=== PATIENT | male | born 1945 | race Caucasian/White ===

== ENCOUNTER 2017-04-09 22:09 | Inpatient (IN) | payer MEDICARE, OTHER ==
[2017-04-09 22:46] LABS: #Basophils 0.1 thou/uL (0.0-0.2); #Eosinphils 0.1 thou/uL (0.0-0.7); #Lymphocytes 1.5 thou/uL (1.20-3.40); #Monocytes 1.1 thou/uL (0.11-0.59); #Neutrophils 9.6 thou/uL (1.40-6.50); %Basophils 0.4 % (0.0-1.0); %Eosinophils 1.1 % (0.0-10.0); %Lymphocytes 11.7 % (21.0-51.0); %Monocytes 8.9 % (0.0-10.0); %Neutrophils 77.9 % (42.0-75.0); Hemoglobin 14.6 g/dL (14.0-18.0); Mean Corpuscular Hemoglobin 28.8 pg (27.0-31.0); Mean Corpuscular Volume 87.4 fl (80.0-94.0); Mean Platelet Volume 8.5 fL (7.4-10.4); Platelet Count 207 thou/uL (130-400); RBC Distribution Width 12.9 % (11.5-14.5); Red Blood Cell (RBC) Count 5.06 mill/uL (4.70-6.10); White Blood Cell (WBC) Count 12.3 thou/uL (4.8-10.8)
[2017-04-09 23:08] LABS: ALT (SGPT) 219 U/L (8-55); AST (SGOT) 329 U/L (5-34); Albumin 4.4 g/dL (3.4-4.8); Alkaline Phosphatase 163 U/L (40-150); Anion Gap 17 mmol/L (10-20); BUN (Urea Nitrogen) 20 mg/dL (8.4-25.7); Bilirubin, Total 1.8 mg/dL (0.2-1.2); Calc. Creatinine Clearance 0 mL/min (70-130); Calcium 9.8 mg/dL (7.8-10.44); Carbon Dioxide 27 mmol/L (23-31); Chloride 97 mmol/L (98-107); Estimated GFR-MDRD 53; Globulin 2.7 g/dL (2.4-3.5); Glucose 394 mg/dL (80-115); Lipase 75 U/L (8-78); Potassium 4.1 mmol/L (3.5-5.1); Protein, Total 7.1 g/dL (5.8-8.1); Sodium 137 mmol/L (136-145)
[2017-04-09 23:13] LABS: CKMB 1.1 ng/mL (0-6.6); Troponin I Less than 0.010 ng/mL (< 0.028)
[2017-04-09 23:40] LABS: Bilirubin Negative (Negative); Blood, Urine Negative (Negative); Clarity CLEAR (Clear); Glucose, Urine (Dipstick) >=1000 mg/dL (Negative); Leukocyte Negative (Negative); Nitrite Negative (Negative); Protein, Urine (Dipstick) Trace mg/dL (Neg-Trace); Specific Gravity, Urine 1.026 (1.002-1.036)
[2017-04-09] MEDS ORDERED: Ondansetron HCl/PF 4 MG/2 ML Vial ONE (23:54)
[2017-04-10] MEDS ORDERED: Acetaminophen 325 MG TAB PO PRN (05:19)
[2017-04-10] MEDS ORDERED: Ondansetron HCl/PF 4 MG/2 ML Vial IVP PRN ×3 (05:19→17:02)
[2017-04-10] MEDS ORDERED: Morphine 4 MG/ML Carpuject SLOW IVP PRN ×2 (05:19→17:02)
[2017-04-10] MEDS ORDERED: Ondansetron ODT 4 MG TAB SL PRN (05:19)
[2017-04-10] MEDS: Sodium Chloride 0.9% 1,000 ML IV SCH ×4 (05:31→21:14)
[2017-04-10] MEDS: Piperacillin/Tazobactam 3.375 GM in Sodium Chloride 0.9% 100 ML IVPB SCH ×4 (05:32→23:45)
--- NOTE | 2017-04-10 07:50 | ULT ---
PRELIMINARY REPORT/[facility]/EMERGENCY AFTER HOURS PROCEDURE: EXAM: US Abdomen Limited, Right Upper Quadrant EXAM DATE/TIME: 04/10/2017 1:39 AM CLINICAL HISTORY: 71 years old, male; Pain and signs and symptoms; Nausea and vomiting; Abdominal pain; Epigastric; Add itional info: HX: Bladder ca TECHNIQUE: Real-time ultrasound of the right upper quadrant with image documentation. COMPARISON: No relevant prior studies available. FINDINGS: Limitations: Limited study due to overlying bowel gas. Liver: Liver is 16.2 cm in length with normal echogenicity. Normal appearing main portal vein flow. No intrahepatic bile duct dilation. Gallbladder: Gallbladder contains multiple shadowing up to 1 cm stones in neck. No evidence of gallbl adder wall thickening. No evidence of pericholecystic fluid. Common bile duct: Common bile duct is increased in width at 8-9 mm with possible stones/sludge in com mon bile duct. No dilation. Pancreas: Pancreas not visualized well. Right kidney: Right kidney 5.9 x 4.6 x 11.2 cm appears normal. No stones. No hydronephrosis. Free fluid: No evidence of free fluid. IMPRESSION: 1. Limited study due to overlying bowel gas. 2. Stones in gallbladder neck with biliary ductal dilatation, possible choledocholithiasis as describ ed above. 3. Mild enlargement/elongation of the liver. Thank you for allowing us to participate in the care of your patient. Dictated and Authenticated by: Alice Fierro MD 04/10/2017 3:16 AM Central Time ([place] & [place]) FINAL REPORT EMERGENT AFTER HOURS RIGHT UPPER QUADRANT ABDOMINAL ULTRASOUND: FINDINGS/IMPRESSION: I agree with the findings and impression given in the preliminary report per [facility] physician. 1. Cholelithiasis. 2. Fatty liver. POS: [facility]
--- NOTE | 2017-04-10 08:15 | RAD ---
TWO VIEWS ABDOMEN AND UPRIGHT VIEW OF THE CHEST: COMPARISON: None. HISTORY: Abdominal pain. FINDINGS: Supine and upright views of the abdomen and upright view of the chest show a nonspecific, nonobstruct memo bowel gas pattern. No free air or air fluid levels are seen on upright examination. There is a calcified granuloma projecting over the right lung. The cardiomediastinal silhouette is n ormal in size. There is no evidence of consolidation or pleural effusion. IMPRESSION: Nonobstructive bowel gas pattern. POS: [facility]
[2017-04-10] MEDS ORDERED: Dextrose 50% Abboject 50 ML SYRINGE SLOW IVP PRN ×2 (08:27→17:02)
[2017-04-10] MEDS ORDERED: Dextrose 5% in Water 1,000 ML IV PRN ×2 (08:27→17:02)
--- NOTE | 2017-04-10 08:35 | HP ---
CHIEF COMPLAINT: Upper abdominal pain. HISTORY OF PRESENT ILLNESS: This is a 71-year-old male with history of diabetes mellitus and hyperte nsion who presents with few day history of pain in his upper abdomen, epigastric, right upper quadran t, but also radiating to the left upper quadrant, associated with nausea, bloating seen in the emerge ncy department where ultrasound revealed gallstones, dilated common bile duct as well as elevation of his liver function tests. He denies history of hepatitis. He denies previous known history of carlos dice or pancreatitis. PAST MEDICAL HISTORY: Includes diabetes mellitus, insulin-dependent, hypertension. PAST SURGICAL HISTORY: Cystoscopic bladder tumor resection. ALLERGIES: IODINE INTRAVENOUS. MEDICINES: Insulin, metformin, and amlodipine. SOCIAL HISTORY: No smoking, alcohol or other drugs. REVIEW OF SYSTEMS: Ten system review of systems otherwise negative unless described above. PHYSICAL EXAMINATION: VITAL SIGNS: Blood pressure is 112/66, pulse 104, respirations 16, temperature 99.2. HEENT: Sclerae are anicteric. Oropharynx clear. NECK: No lymphadenopathy. CHEST: Clear. HEART: Regular rate and rhythm. ABDOMEN: Soft, tender in the upper abdomen, mostly in the epigastric and right upper quadrant. No g uarding or rebound. EXTREMITIES: No ischemia or edema to extremities. LABORATORY DATA: White blood cell count is 12, hemoglobin 14, platelet count is 207. Sodium 137, po tassium 4.1, creatinine 1.33, glucose 394, bilirubin 1.8, AST and ALT are elevated, alkaline phosphat ase 163, lipase normal. ASSESSMENT: Ultrasound shows gallstones and dilated common bile duct. ASSESSMENT: 1. Acute cholecystitis with elevated liver function test. 2. Diabetes mellitus. 3. Hypertension. PLAN: Laparoscopic cholecystectomy with intraoperative cholangiogram. Risks, benefits, alternatives discussed. He gives consent. We will do this today.
[2017-04-10] MEDS ORDERED: Insulin Regular 300 UNITS/3 ML VIAL ONE (12:31)
[2017-04-10] MEDS ORDERED: Lidocaine 1% PF 5 ML VIAL ONE (12:41)
[2017-04-10] MEDS ORDERED: Glycopyrrolate 0.2 MG/ML 5 ML SYRINGE ONE (12:41)
[2017-04-10] MEDS ORDERED: Propofol 200 MG/20 ML VIAL ONE (12:41)
[2017-04-10] MEDS ORDERED: PHENYLEPHRINE-NS 100 MCG/ML 10 ML SYRINGE ONE (12:41)
[2017-04-10] MEDS ORDERED: Ondansetron HCl/PF 4 MG/2 ML Vial ONE (12:41)
[2017-04-10] MEDS ORDERED: Fentanyl 100 MCG/2 ML VIAL ONE ×3 (13:21→16:57)
[2017-04-10] MEDS ORDERED: Iothalamate Meglumine 60% 50 ML VIAL FS ONE (13:37)
[2017-04-10] MEDS ORDERED: Bupivacaine 0.25% HCL 30 ML VIAL ONE (13:37)
[2017-04-10] MEDS ORDERED: Lidocaine 2% w/Epinephrine 1:200K 20 ML VIAL ONE (13:37)
[2017-04-10] MEDS ORDERED: Promethazine HCl 25 MG/ML VIAL SLOW IVP PRN (15:29)
[2017-04-10] MEDS ORDERED: Promethazine HCl 25 MG/ML VIAL IM PRN ×2 (15:29→17:02)
--- NOTE | 2017-04-10 16:51 | OP ---
DATE OF PROCEDURE: 04/10/2017 PREOPERATIVE DIAGNOSIS: Acute cholecystitis with elevated liver function test. POSTOPERATIVE DIAGNOSES: 1. Acute cholecystitis with elevated liver function test. 2. Choledocholithiasis. PROCEDURE: Laparoscopic cholecystectomy with intraoperative cholangiogram. SURGEON: Mitesh Pacheco MD ANESTHESIA: General. ESTIMATED BLOOD LOSS: Minimal. COMPLICATIONS: None. SPECIMEN: Gallbladder. FINDINGS: Distal common duct stones, but not complete obstruction. TECHNIQUE: The patient was taken to the operating room, laid supine on the operating table. After g eneral anesthetic was obtained, the abdomen was shaved, prepped and draped in a sterile fashion. Cur harry incision was made below the umbilicus. Cautery was used to dissect down to and score the fascia. Abdominal cavity was entered bluntly using a Rosalinda clamp. Holding stitch of PDS was placed on each side of the fascia. Alejandra trocar was placed. High-flow pneumoperitoneum was obtained. An upper m idline 5-mm port, 2 right upper quadrant 5-mm ports were placed under direct visualization. The gall bladder was retracted from the gallbladder fossa. The peritoneum was opened anteriorly and posterior ly. Critical view triangle was seen, only the cystic duct and cystic artery branching medial to late ral and no other branching structures. A clip was placed high on the cystic duct. A small ductotomy was made just proximal to that. A cholangiocatheter was brought in through a separate stab incision , placed in the cystic duct, and a cholangiogram was performed which shows contrast flow into the duo denum; however, there were few filling defects in the distal common bile duct and a markedly dilated common bile duct. Cholangiocatheter was removed. Two clips were placed proximally on the cystic marcus t and cystic duct was cut using laparoscopic scissors. Cystic artery was taken using two clips arturoi enmanuel, one clip distally, and cut using laparoscopic scissors. Cautery was used to dissect the gallb ladder out of the gallbladder fossa. Gallbladder was placed in an Endo Catch bag and brought out thr ough the Solomon. Meticulous hemostasis was obtained in the liver bed. There was no ongoing bleeding . All port sites were infiltrated using local anesthetic. All ports were removed under camera visua lization. Pneumoperitoneum was let down. PDS was used to close the fascial defect below the umbilic us. All incisions were irrigated and closed using 4-0 Monocryl and Dermabond. The patient was en ro janis to recovery in stable condition. All instrument counts, needle counts, and lap counts were corre ct.
[2017-04-10] MEDS ORDERED: Morphine 5 MG/ML SYRINGE SLOW IVP PRN (17:02)
[2017-04-10] MEDS ORDERED: HYDROcodone/Acetaminophen 10/325 mg Tablet PO PRN ×2 (17:02)
[2017-04-10] MEDS ORDERED: hydrALAZINE 20 MG/ML VIAL SLOW IVP PRN (17:02)
[2017-04-10] MEDS ORDERED: Calcium Carbonate 500 MG ChewTAB PO PRN (17:02)
[2017-04-10] MEDS ORDERED: Mag-Al 1200 mg/1200 mg/30 ML UDCUP PO PRN (17:02)
--- NOTE | 2017-04-10 17:36 | RAD ---
OPERATIVE CHOLANGIOGRAM: 04/10/17 A single fluoroscopic image presented from the OR. INDICATION: Intraoperative imaging during cholecystectomy. FINDINGS/IMPRESSION: A large filling defect seen in the lower common duct consistent with multiple retained stones or othe r mass lesions. POS: [facility]
[2017-04-10] MEDS: Morphine 5 MG/ML SYRINGE SLOW IVP PRN (18:56)
[2017-04-10] MEDS: Famotidine 20 MG TAB PO SCH (21:06)
[2017-04-10] MEDS: Famotidine/PF 20 mg/2ml Vial SLOW IVP SCH (21:07)
[2017-04-10] MEDS: Insulin Regular 300 UNITS/3 ML VIAL SC SCH (21:10)
[2017-04-11 05:12] LABS: #Lymphocytes 0.8 thou/uL (1.20-3.40); #Monocytes 1.1 thou/uL (0.11-0.59); #Neutrophils 8.4 thou/uL (1.40-6.50); %Eosinophils 0.4 % (0.0-10.0); %Lymphocytes 7.9 % (21.0-51.0); %Monocytes 10.9 % (0.0-10.0); %Neutrophils 80.8 % (42.0-75.0); Hemoglobin 11.6 g/dL (14.0-18.0); Mean Corpuscular Hemoglobin 28.7 pg (27.0-31.0); Mean Corpuscular Volume 89.8 fl (80.0-94.0); Mean Platelet Volume 8.7 fL (7.4-10.4); Platelet Count 144 thou/uL (130-400); RBC Distribution Width 13.1 % (11.5-14.5); Red Blood Cell (RBC) Count 4.04 mill/uL (4.70-6.10); White Blood Cell (WBC) Count 10.4 thou/uL (4.8-10.8)
[2017-04-11 05:19] LABS: INR-International Normal Ratio 1.4; Prothrombin Time 17.5 SEC (12.0-14.7)
[2017-04-11 05:37] LABS: ALT (SGPT) 335 U/L (8-55); AST (SGOT) 173 U/L (5-34); Albumin 3.3 g/dL (3.4-4.8); Alkaline Phosphatase 103 U/L (40-150); Anion Gap 13 mmol/L (10-20); BUN (Urea Nitrogen) 28 mg/dL (8.4-25.7); Bilirubin, Total 6.2 mg/dL (0.2-1.2); Calc. Creatinine Clearance 0 mL/min (70-130); Calcium 7.9 mg/dL (7.8-10.44); Carbon Dioxide 24 mmol/L (23-31); Chloride 99 mmol/L (98-107); Estimated GFR-MDRD 55; Globulin 2.1 g/dL (2.4-3.5); Glucose 351 mg/dL (80-115); Lipase 8 U/L (8-78); Potassium 4.4 mmol/L (3.5-5.1); Protein, Total 5.4 g/dL (5.8-8.1); Sodium 132 mmol/L (136-145)
[2017-04-11] MEDS: Piperacillin/Tazobactam 3.375 GM in Sodium Chloride 0.9% 100 ML IVPB SCH ×3 (06:28→18:18)
[2017-04-11] MEDS: Sodium Chloride 0.9% 1,000 ML IV SCH ×2 (06:28→21:30)
[2017-04-11] MEDS ORDERED: Iothalamate Meglumine 60% 50 ML VIAL FS ONE ×2 (06:45→10:00)
--- NOTE | 2017-04-11 07:41 | CON ---
DATE OF CONSULTATION: 04/10/2017 REASON FOR CONSULTATION: Choledocholithiasis. HISTORY OF PRESENT ILLNESS: Mr. Mejía is a pleasant 71-year-old gentleman who came in to the hospit nv with biliary colic. He had mildly elevated liver enzymes. He had stones on ultrasound. He under went a cholecystectomy today with intraoperative cholangiogram that showed filling defects suggestive of multiple stones. These would now pass on their own. Presently, he is in the recovery room, jericho davila. He has had some pain medications. Apparently, there is history that some of the pain was radiating to left upper quadrant. There was s ome nausea associated with his symptoms in the emergency room where he was found to have the gallston es. PAST MEDICAL HISTORY: Diabetes, insulin-dependent, hypertension. PAST SURGICAL HISTORY: Cystoscopic bladder tumor resection, laparoscopic cholecystectomy today. ALLERGIES: IODINE. MEDICATIONS: Insulin, metformin, and amlodipine at home. SOCIAL HISTORY: Negative for alcohol, drugs, tobacco. REVIEW OF SYSTEMS: Negative for chest pain, shortness of breath, dyspnea, dysphagia, odynophagia, me anabel, hematochezia, or hematemesis. PRESENT MEDICATIONS HERE IN THE HOSPITAL: Maalox, DuoNeb, Norvasc, Tums, Pepcid p.r.n., [place] p.r.n. , morphine p.r.n., Humalog insulin sliding scale, Zosyn, Phenergan, normal saline at 75 mL an hour. PHYSICAL EXAMINATION: LUNGS: Clear. HEART: Regular rate and rhythm. ABDOMEN: Soft, nontender. VITAL SIGNS: Temperature at this point is 99.2, pulse is 104, blood pressure 112/66. LABORATORY AND X-RAY FINDINGS: White count was 12.3 on admission. Hemoglobin was 14, platelet count 207, bilirubin was 1.8, AST was 329, ALT was 219, alkaline phosphatase 163, lipase is 75. BUN and c reatinine were 20 and 1.33. Imaging: Intraoperative cholangiogram films reviewed. There are multip le filling defects in the distal duct. There is spontaneous drainage of contrast into the duodenum. Ultrasound showed 1 cm stone in the neck of the gallbladder, 8 cm common bile duct with possible sto titus in the duct. Fatty liver. ASSESSMENT: Choledocholithiasis with drainage of contrast on the intraoperative cholangiography cyrus coombs It is associated with the findings suggestive of this on the ultrasound and also with elevation o f liver enzymes suggestive of cholestatic pattern. PLAN: N.p.o. after midnight. Continue antibiotics. Repeat labs in the morning. ERCP tomorrow. Ri sks, benefits, and possible complications of an ERCP including perforation, bleeding, reactions to me dication and aspiration and pancreatitis were discussed with the patient. He understands this, but I am not sure he will remember as he just had surgery and some pain medicine in recovery room. We alana l review this consent again tomorrow morning before proceeding to endoscopy.
[2017-04-11] MEDS ORDERED: Indomethacin 50 MG SUPP ONE (08:31)
[2017-04-11] MEDS ORDERED: Fentanyl 100 MCG/2 ML VIAL ONE (09:18)
[2017-04-11] MEDS: Insulin Regular 300 UNITS/3 ML VIAL SC SCH ×3 (09:52→21:30)
[2017-04-11] MEDS: Amlodipine 10 MG TAB PO SCH (09:52)
[2017-04-11] MEDS: Famotidine 20 MG TAB PO SCH ×2 (09:52→21:30)
[2017-04-11] MEDS: Famotidine/PF 20 mg/2ml Vial SLOW IVP SCH ×2 (09:52→21:30)
--- NOTE | 2017-04-11 10:05 | CON ---
DATE OF CONSULTATION: 04/11/2017 REASON FOR CONSULTATION: A consultation was requested for urinary retention. HISTORY OF PRESENT ILLNESS: The patient is a 71-year-old male who was admitted with acute cholecystitis and underwent a laparoscopic cholecystectomy. Postoperatively, he has been unable to void and they have had to straight cath him for 700 of urine. He is anticipating going to ERCP at which time they plan to place a Caceres catheter. I would otherwise plan to send him home as long as he does well. So, I was consulted for Caceres management and retention. The patient normally has frequency q.2-3 hours and nocturia x3. He denies any lower urinary tract symptoms to include hesitancy, weak stream, incomplete emptying, but he does admit to some urgency with rare urge incontinence, not requiring pads or liners. PAST MEDICAL HISTORY: Significant for insulin dependent diabetes for the past 4 years. He has had diabetes for 29 years, hypertension, melanoma. PAST SURGICAL HISTORY: Transurethral resection of a bladder tumor twice. The first time it was cancer. The second time it was not, this was greater than 10 years ago and he did not continue to follow up. We reviewed how to assist with bladder cancer. He deserves annual follow-up indefinitely with a urologist. Other surgery includes melanoma excision of the face. ALLERGIES: IV CONTRAST. MEDICATIONS: Insulin, metformin, amlodipine. SOCIAL HISTORY: He has never smoked. He does not drink or use drugs. REVIEW OF SYSTEMS: Reveals easy bruising. He denies any chest pain. He has had some shortness of breath with the recent pain from the procedure, but otherwise does not, denies any cough or diarrhea. He might be constipated. He had a colonoscopy in 2009, which was okay and he has annual PSAs and DREs which have been normal and he does believe they have been in the last year. No gross hematuria, no UTIs and no stones. FAMILY HISTORY: Mother at 80 after falling and breaking her hip. Father at 83 of noncancer related illness, although he does have a history of prostate cancer and they said that it did not need to be treated as the cancer would not contribute to his . PHYSICAL EXAMINATION: GENERAL: The patient is lying in the bed relatively comfortable except when asked to move around. He is in no distress. HEENT: Slightly flushed. NECK: No JVD. CARDIOVASCULAR: Regular rhythm with borderline tachycardia. No murmurs or gallops or rubs. LUNGS: Clear to auscultation bilaterally. ABDOMEN: Softly distended with recent incisions noted and minimal bowel sounds. GENITOURINARY: Testes were descended bilaterally without masses. Phallus circumcised without lesions. No meatal stenosis. RECTAL: Digital rectal exam revealed enlarged but smooth prostate without any sidewall fixation or nodules. EXTREMITIES: No lower extremity edema. LABORATORY DATA: Reveal a CBC with 11.6 and 36.2 H&H, BUN and creatinine are 28 and 1.29 with a prior reading 1.33 so he may have a component of renal insufficiency. Urinalysis from 04/09/2017 was negative except for glucose and trace ketones. ASSESSMENT AND PLAN: We have a 71-year-old male with presumed benign prostatic hypertrophy and retention after a recent surgical intervention. We reviewed, tamsulosin, finasteride, leaving the catheter in and following up as an outpatient. We reviewed how he will remove it at 6-7AM on Thursday morning, and that he is to see me in follow up that afternoon to ensure emptying. TANVI
[2017-04-11] MEDS ORDERED: Promethazine HCl 25 MG/ML VIAL IM PRN (10:54)
[2017-04-11] MEDS ORDERED: Ondansetron HCl/PF 4 MG/2 ML Vial IVP PRN (10:54)
[2017-04-11] MEDS ORDERED: Promethazine HCl 25 MG/ML VIAL SLOW IVP PRN (10:54)
[2017-04-11] MEDS ORDERED: traMADol HCl 50 MG TAB PO PRN (10:58)
[2017-04-11] MEDS ORDERED: Ibuprofen 600 MG TAB PO PRN (10:58)
[2017-04-11] MEDS ORDERED: Acetaminophen 500 MG TAB PO PRN (10:58)
--- NOTE | 2017-04-11 11:08 | PRG ---
DATE OF SERVICE: 04/11/2017 Tonio Mejía is having urinary problems. He reports nocturia every 1 to 2 hours at home, although he states he does not have any urinary problems. He has seen a urologist many years ago, does not reca ll the name. He has been on Flomax in the past, but not for many years. Last night, he was able to urinate post-cholecystectomy and straight cath for 400 mL bladder scan performed. He has not been ab le to urinate since that 0200 event. A Caceres catheter will be placed in the operating room at the [facility] of the ERCP, Dr. Freedman is planning that. PHYSICAL EXAMINATION: LUNGS: Clear to auscultation. CARDIAC: Regular rate and rhythm without murmur or gallop. ABDOMEN: Slightly distended and nontender. Trocar site incisions healthy. LABORATORY: This morning white count 10, hemoglobin 11, bilirubin 6.2. BMP essentially normal. Sod ium 132. ASSESSMENT AND PLAN: 1. Retained stones. ERCP planned today. 2. Bladder outlet obstruction symptoms. Start Flomax, Urology consult, Caceres catheter placed intrao peratively. We could remove the Caceres in the morning to give the patient a voiding trial again, but will await Urology opinion. He could be discharged home with a Caceres with Urology followup for his u rinary retention.
--- NOTE | 2017-04-11 11:24 | RAD ---
ERCP: COMPARISON: Cholangiogram in surgery 04/10/17. HISTORY: Cholelithiasis. FINDINGS/IMPRESSION: Multiple limited intraoperative fluoroscopic views from a cholangiogram taken in surgery were submitt ed for interpretation. There are multiple filling defects in the common bile duct which appears enla rged on the initial images. The lateral images show no residual filling defects. These may have rep resented stones within the common bile duct which have been removed. POS: [facility]
[2017-04-11] MEDS ORDERED: Labetalol 100 MG/20 ML MDV SLOW IVP SCH (12:00)
[2017-04-11] MEDS: Morphine 5 MG/ML SYRINGE SLOW IVP PRN (12:17)
[2017-04-11 12:58] LABS: Bilirubin Small (Negative); Blood, Urine Large (Negative); Clarity CLEAR (Clear); Glucose, Urine (Dipstick) Negative (Negative); Leukocyte Trace (Negative); Nitrite Negative (Negative); Protein, Urine (Dipstick) 30 mg/dL (Neg-Trace)
[2017-04-11 13:00] LABS: Bacteria/HPF 4+ HPF (None Seen); Hyaline Casts/LPF 0-3 HYALINE CAST LPF (0-3 Hyaline); RBC/HPF 21-50 HPF (0-3); Squamous Epithelial 0-3 HPF (0-3)
[2017-04-11] MEDS: traMADol HCl 50 MG TAB PO PRN (14:43)
[2017-04-11] MEDS ORDERED: Propofol 200 MG/20 ML VIAL ONE (15:54)
[2017-04-11] MEDS ORDERED: PHENYLEPHRINE-NS 100 MCG/ML 10 ML SYRINGE ONE (15:54)
[2017-04-11] MEDS ORDERED: Lidocaine 1% PF 5 ML VIAL ONE (15:54)
[2017-04-11] MEDS ORDERED: Ondansetron HCl/PF 4 MG/2 ML Vial ONE (15:54)
[2017-04-11] MEDS ORDERED: Succinylcholine Chloride 20 MG/ML 10 ml SYRINGE FS ONE (15:54)
[2017-04-11] MEDS: HumaLOG 300 UNITS/3 ML VIAL SC PRN (18:23)
--- NOTE | 2017-04-11 20:08 | OP ---
PREPROCEDURE DIAGNOSIS: Choledocholithiasis. POSTPROCEDURE DIAGNOSES: Choledocholithiasis and cholangitis. ANESTHESIA: General endotracheal anesthesia. The patient had not been able to urinate overnight and also had a Caceres catheter placed in operating room. He was already on Zosyn. No other antibiotics were given. He was given 2 Indocin and receive d a liter of fluid during the procedure. PROCEDURE IN DETAIL: After the patient was informed of the risks, benefits, possible complications o f endoscopy including perforation, bleeding, reactions to medication and aspiration, informed consent was obtained. The patient was brought to endoscopy suite where he was sedated in gradual fashion. Once he was comfortable, he was intubated. He then had a catheter placed, and he was placed in prone position on the fluoroscopy table. A side-viewing duodenoscope was advanced through the esophagus, stomach and second and third portion of duodenum and slowly removed. He had J-shaped stomach and aft er several attempts and with some abdominal pressure, we were able to straighten the scope and bring it in a short position to view the ampulla. There was pus here. Free cannulation was obtained. Cho langiogram revealed multiple filling defects. A sphincterotomy was performed over a guidewire and th en used a 12 mm balloon to extract about 5 stones from the duct and we irrigated the duct with saline , removed pus. The patient remained hemodynamically stable throughout the procedure. There was no b leeding. Occlusion cholangiogram with termination of the procedure was normal. The duodenum and sto mach were then desufflated. The scope was then removed. The patient was then extubated and brought to recovery room in stable condition. RECOMMENDATIONS: Continue IV antibiotics. Repeat LFTs tomorrow. Restart diet. The patient is not ready to go home yet he has cholangitis.
[2017-04-12] MEDS: Piperacillin/Tazobactam 3.375 GM in Sodium Chloride 0.9% 100 ML IVPB SCH ×3 (00:12→12:14)
[2017-04-12 05:03] LABS: ALT (SGPT) 223 U/L (8-55); AST (SGOT) 71 U/L (5-34); Albumin 3.2 g/dL (3.4-4.8); Alkaline Phosphatase 99 U/L (40-150); Anion Gap 11 mmol/L (10-20); BUN (Urea Nitrogen) 25 mg/dL (8.4-25.7); Bilirubin, Direct 4.6 mg/dL (0.1-0.3); Bilirubin, Total 5.3 mg/dL (0.2-1.2); Calc. Creatinine Clearance 0 mL/min (70-130); Calcium 7.9 mg/dL (7.8-10.44); Carbon Dioxide 24 mmol/L (23-31); Chloride 106 mmol/L (98-107); Estimated GFR-MDRD 58; Glucose 118 mg/dL (80-115); Potassium 3.6 mmol/L (3.5-5.1); Protein, Total 5.6 g/dL (5.8-8.1); Sodium 137 mmol/L (136-145)
[2017-04-12 05:07] LABS: Band 13 % (5-11); Eosinophils 1 % (0-10); Lymphocytes 16 % (21-51); MDiff Complete? YES; Mean Corpuscular HGB CONC 31.5 g/dL (32.0-36.0); Mean Corpuscular Hemoglobin 28.4 pg (27.0-31.0); Mean Corpuscular Volume 90.2 fl (80.0-94.0); Mean Platelet Volume 8.6 fL (7.4-10.4); Metamyelocyte 1 % (0-0); Monocytes 9 % (0-10); Neutrophil 60 % (42-75); Platelet Count 126 thou/uL (130-400); Red Blood Cell (RBC) Count 3.87 mill/uL (4.70-6.10); White Blood Cell (WBC) Count 8.3 thou/uL (4.8-10.8)
[2017-04-12] MEDS: traMADol HCl 50 MG TAB PO PRN (06:36)
[2017-04-12] MEDS ORDERED: Bisacodyl 10 MG SUPP PR PRN (08:25)
[2017-04-12] MEDS ORDERED: Bisacodyl 10 MG SUPP PR SCH (08:30)
[2017-04-12] MEDS ORDERED: Polyethylene Glycol 3350 17 GM Packet PO SCH (09:00)
[2017-04-12] MEDS: Famotidine 20 MG TAB PO SCH ×2 (09:08→22:08)
[2017-04-12] MEDS: Famotidine/PF 20 mg/2ml Vial SLOW IVP SCH (09:08)
[2017-04-12] MEDS: Amlodipine 10 MG TAB PO SCH (09:08)
[2017-04-12] MEDS: Insulin Regular 300 UNITS/3 ML VIAL SC SCH ×3 (09:14→22:06)
[2017-04-12] MEDS: Sodium Chloride 0.9% 1,000 ML IV SCH (12:14)
[2017-04-12] MEDS: HumaLOG 300 UNITS/3 ML VIAL SC PRN (12:23)
[2017-04-12] MEDS ORDERED: Magnesium Citrate 300 ML BOT PO SCH (15:00)
--- NOTE | 2017-04-12 16:23 | PRG ---
DATE OF SERVICE: 04/12/2017 Mr. Mejía feels well. He is voiding well. He complains of being bloated with gas now. PHYSICAL EXAMINATION: VITAL SIGNS: Temperature is 98, pulse 96. He has no pain. He is passing gas, temperature is 98, pu lse 96, blood pressure 136/77. ABDOMEN: Protuberant and tympanitic. There is no rebound. There is no guarding. LABORATORY STUDIES: White count is 8.3, hemoglobin 11, platelet count 126. Bilirubin is 5.3, AST an d ALT 71 and 223. ASSESSMENT: 1. Cholelithiasis, status post cholecystectomy, choledocholithiasis, status post endoscopic retrogra de cholangiopancreatography, urinary retention as Caceres catheter removed and he had 900 mL urine outp ut per nursing. 2. Abdominal distention. This seems to be gas bloating. He has no pain to suggest pancreatitis. H e has no fever or chills. RECOMMENDATIONS: 1. Advance diet. 2. Ambulate. 3. Discontinue opiates. 4. Agree with MiraLax. 5. Repeat LFTs tomorrow, will be staying overnight.
--- NOTE | 2017-04-12 16:32 | PRG ---
DATE OF SERVICE: 04/12/2017 SUBJECTIVE: Tonio Mejía is doing well today. He has not yet had a bowel movement. He is passing g as. He is not having nausea or vomiting. OBJECTIVE: VITAL SIGNS: 98.2 degrees, 96, 136/77. GENITOURINARY: Caceres catheter has been removed and he is able to urinate. CARDIAC: Regular rate and rhythm without murmur or gallop. ABDOMEN: Soft, slightly distended, protuberant, but nontender. Wounds well healed. LABORATORY DATA: This morning, his white count is 8, hemoglobin 11. His liver function tests are im proved. Bilirubin down to 5.3. AST, ALT, and alkaline phosphatase are improved. ASSESSMENT AND PLAN: The patient is doing well, awaiting for better bowel function. He can probably go home today, but he feels little uncomfortable with his abdominal distention and lack of bowel mov ement. Today, we will stop his narcotics and order nonnarcotic analgesics and probably plan discharg e home tomorrow. We will repeat his liver function test tomorrow. We will stop his IV fluids.
[2017-04-12] MEDS ORDERED: Tamsulosin HCl 0.4 MG CAP PO SCH (21:00)
[2017-04-12] MEDS: Polyethylene Glycol 3350 17 GM Packet PO SCH (22:08)
[2017-04-13 05:18] LABS: #Eosinphils 0.1 thou/uL (0.0-0.7); #Lymphocytes 0.9 thou/uL (1.20-3.40); #Monocytes 0.6 thou/uL (0.11-0.59); #Neutrophils 5.3 thou/uL (1.40-6.50); %Basophils 0.4 % (0.0-1.0); %Eosinophils 1.5 % (0.0-10.0); %Lymphocytes 12.5 % (21.0-51.0); %Monocytes 9.1 % (0.0-10.0); %Neutrophils 76.5 % (42.0-75.0); Hemoglobin 12.1 g/dL (14.0-18.0); Mean Corpuscular HGB CONC 32.5 g/dL (32.0-36.0); Mean Corpuscular Volume 89.3 fl (80.0-94.0); Mean Platelet Volume 8.6 fL (7.4-10.4); Platelet Count 145 thou/uL (130-400); RBC Distribution Width 12.9 % (11.5-14.5); Red Blood Cell (RBC) Count 4.18 mill/uL (4.70-6.10); White Blood Cell (WBC) Count 6.9 thou/uL (4.8-10.8)
[2017-04-13] MEDS: HumaLOG 300 UNITS/3 ML VIAL SC PRN (05:32)
[2017-04-13 05:44] LABS: ALT (SGPT) 155 U/L (8-55); AST (SGOT) 42 U/L (5-34); Albumin 3.3 g/dL (3.4-4.8); Alkaline Phosphatase 142 U/L (40-150); Bilirubin, Direct 3.2 mg/dL (0.1-0.3); Lipase 36 U/L (8-78)
[2017-04-13] MEDS: Famotidine 20 MG TAB PO SCH (08:55)
[2017-04-13] MEDS: Insulin Regular 300 UNITS/3 ML VIAL SC SCH (08:55)
[2017-04-13] MEDS: Amlodipine 10 MG TAB PO SCH (08:55)
[2017-04-13] MEDS: Polyethylene Glycol 3350 17 GM Packet PO SCH (08:56)
--- NOTE | 2017-04-13 11:58 | DIS ---
ADMIT DIAGNOSIS: Acute cholecystitis with choledocholithiasis. DISCHARGE DIAGNOSIS: Acute cholecystitis with choledocholithiasis. PROCEDURES: Laparoscopic cholecystectomy by Dr. Pacheco without complication and ERCP by Dr. Freedman without complication. CONDITION AT DISCHARGE: Improved. STAFF: Dr. Mitesh Pacheco. HOSPITAL COURSE: See hospital chart for details of hospitalization.
[2017-04-13 12:29] VITALS: BP 136/72; TEMP 98.2
--- NOTE | 2017-04-13 14:08 | PRG ---
DATE OF SERVICE: 04/13/2017 Mr. Mejía's abdominal distention is better. He has a bowel movement. He has no nausea, vomiting or pain. He is voiding without a Caceres catheter and he is going to go home today. PHYSICAL EXAMINATION: VITAL SIGNS: Temperature 98, pulse 87, blood pressure 136/72. ABDOMEN: Protuberant, but soft and nontender. LABORATORY STUDIES: White count 6.9, hemoglobin 12.1, platelet count 145, bilirubin is down to 4, T and ALT are 42 and 155, alkaline phosphatase 142, lipase 36. ASSESSMENT: 1. Choledocholithiasis, resolved liver function tests, improving. 2. Cholecystitis, improving. 3. Urinary retention, resolved. PLAN: I agree with plan for discharge home. He is going to follow up with Dr. Pacheco in the office a few weeks. I will be happy to see him back as needed.
== END 2017-04-13 11:40 | disposition home or self-care (01) | DRG 419 ==
LOC: ERS 22:09 → SJJU 04-10 04:00
PROVIDERS: ADMIT Surgery; ATTEND Surgery
PROC: 0FT44ZZ Resection of Gallbladder, Percutaneous Endoscopic Approach (ICD-10-PCS; principal; 2017-04-10)
PROC: BF130ZZ Fluoroscopy of Gallbladder and Bile Ducts using High Osmolar Contrast (ICD-10-PCS; 2017-04-10)
PROC: 0FC98ZZ Extirpation of Matter from Common Bile Duct, Via Natural or Artificial Opening Endoscopic (ICD-10-PCS; 2017-04-11)
DX: K80.42 Calculus of bile duct with acute cholecystitis without obstruction (principal); E11.9 Type 2 diabetes mellitus without complications; Z79.4 Long term (current) use of insulin; I10 Essential (primary) hypertension; Z79.84 Long term (current) use of oral hypoglycemic drugs; N40.1 Benign prostatic hyperplasia with lower urinary tract symptoms; R33.8 Other retention of urine
CPT/HCPCS: 36415; 36416; 47532; 74022; 74330; 76705; 80048; 80053; 80076; 81001; 81003; 82553; 83690; 84484; 85007; 85025; 85027; 85610; 87086; 88304; 93005; 96361; 96374; 96375; J2270; J1815; J2001; J2405; J2543; J2704; J3010; J7050; Q9961; S0020

== ENCOUNTER 2021-05-10 12:35 | Outpatient (CLI) | payer OTHER ==
[~2021-05-10 12:35] MED LIST: Iopamidol 370 76% 100 ML VIAL ONE
== END 2021-05-10 12:36 | disposition home or self-care (01) ==
LOC: CT 12:35
PROVIDERS: ATTEND Internal Medicine Gastroenterology
DX: C18.9 Malignant neoplasm of colon, unspecified (principal); K63.9 Disease of intestine, unspecified; R91.1 Solitary pulmonary nodule
CPT/HCPCS: 71260; 74177; 82565; Q9967